=== PATIENT | female | born 1995 | race Caucasian/White ===

== ENCOUNTER 2017-10-02 09:45 | Emergency (ER) | payer BC ==
[~2017-10-02] VITALS: Ht 167.6 cm; Wt 63.6 kg
[2017-10-02 09:52] VITALS: BP 144/94; PULSE 114; TEMP 99.5
[2017-10-02] MEDS ORDERED: AMOXICILLIN875 MG PO (11:43)
== END 2017-10-02 10:52 | disposition home or self-care (01) ==
LOC: COL.ER 09:45
DX: T76.21XA Adult sexual abuse, suspected, initial encounter (principal)

== ENCOUNTER → 2017-10-02 | Outpatient (CLI) | payer BC ==
[~2017-10-02] MED LIST: AMOXICILLIN875 MG PO
[2017-10-02 13:09] LABS: COLLECTION METHOD RANDOM VOIDED
[2017-10-02 13:17] LABS: MUCOUS Present /lpf; PH 7 (5-8); SQUAMOUS EPITHELIAL 0-2 /hpf; URINE APPEARANCE Clear; URINE BACTERIA None Seen /hpf; URINE BILIRUBIN Negative (NEGATIVE); URINE BLOOD 1+ (NEGATIVE); URINE COLOR Yellow; URINE GLUCOSE Negative (NEGATIVE); URINE KETONE Negative (NEGATIVE); URINE LEUKOCYTE ESTERASE Negative (NEGATIVE); URINE NITRATE Negative (NEGATIVE); URINE PROTEIN(semi-quant) Negative (NEGATIVE); URINE UROBILINOGEN Negative (NEGATIVE)
[2017-10-02 13:29] LABS: TRICYCLIC ANTIDEPRESS URINE NEGATIVE
== END ==
LOC: LDRO 10:29
PROVIDERS: Family Medicine
DX: T74.22XA Child sexual abuse, confirmed, initial encounter (principal)
CPT/HCPCS: J0696

== ENCOUNTER → 2017-10-02 | Outpatient (REF) | LOC: LDRO 10:41 | DX: Z04.41 Encounter for examination and observation following alleged adult rape (principal) ==